=== PATIENT | female | born 1930 | race African-American/Black ===

== ENCOUNTER 2018-08-26 15:31 | Inpatient (IN) | payer MEDICARE, BC ==
[~2018-08-26] VITALS: Ht 157.5 cm; Wt 59.0 kg
[2018-08-26] MEDS ORDERED: FUROSEMIDE 40MG/4ML VIAL IVP ONE (16:30)
[2018-08-26 17:02] LABS: CHLORIDE 108 mEq/L (98-107); INR 1.1; PROTHROMBIN TIME 11.8 sec (9.6-11.0)
[2018-08-26 17:03] LABS: HEMATOCRIT. 34.2 % (36.0-48.0); HEMOGLOBIN. 11.3 g/dL (12.0-16.0); MEAN CORPUSCULAR HEMOGLOBIN 28.2 pg (28.0-32.0); MEAN CORPUSCULAR VOLUME 85.1 fL (81.0-99.0); MEAN PLATELET VOLUME 8.2 fl (7.4-10.4); PLATELET 137 x1000/uL (130-400); RED BLOOD CELL COUNT 4.02 mill/uL (4.2-5.4)
[2018-08-26] MEDS ORDERED: ASPIRIN 81MG TABLET PO ONE (17:30)
[2018-08-26 17:58] LABS: PLATELET ESTIMATE NORMAL
[2018-08-26 22:42] VITALS: BP 180/106
[2018-08-26 22:43] VITALS: BP 180/106
[2018-08-26] MEDS ORDERED: METH2.5T PO (23:29)
[2018-08-26] MEDS ORDERED: METO-396 PO (23:29)
[2018-08-26] MEDS ORDERED: FURO-151 PO (23:29)
[2018-08-26] MEDS ORDERED: NITR-87 PO (23:29)
[2018-08-26] MEDS ORDERED: DICL100G16 TP (23:29)
[2018-08-26] MEDS ORDERED: LOSA100T3 PO (23:29)
[2018-08-26] MEDS ORDERED: ASPI-1159 PO (23:29)
[2018-08-26] MEDS ORDERED: LIP40 PO (23:29)
[2018-08-27] MEDS: METOPROLOL TARTRATE 25MG TABLET PO SCH ×3 (00:39→21:04)
[2018-08-27] MEDS: ACETAMINOPHEN 325MG TABLET PO PRN ×2 (00:51→19:34)
[2018-08-27 03:57] VITALS: BP 141/79
[2018-08-27 05:57] LABS: HEMOGLOBIN. 10.4 g/dL (12.0-16.0); MEAN CORPUSCULAR HEMOGLOBIN 28.7 pg (28.0-32.0); MEAN CORPUSCULAR VOLUME 85.3 fL (81.0-99.0); MEAN PLATELET VOLUME 8.7 fl (7.4-10.4); PLATELET 134 x1000/uL (130-400); RED BLOOD CELL COUNT 3.63 mill/uL (4.2-5.4)
[2018-08-27 06:08] LABS: CLARITY URINE CLEAR (CLEAR); COLOR URINE YELLOW (YELLOW); KETONES URINE NEGATIVE (NEGATIVE); LEUKOCYTE ESTERASE URINE 1+ (NEGATIVE); NITRITE URINE NEGATIVE (NEGATIVE); OCCULT BLOOD URINE NEGATIVE (NEGATIVE); PROTEIN URINE NEGATIVE (NEGATIVE)
[2018-08-27 06:12] LABS: CHLORIDE 109 mEq/L (98-107)
[2018-08-27 06:19] LABS: LDL CHOLESTEROL 67 mg/dL (5-100)
[2018-08-27 06:29] LABS: CREATINE KINASE 43 IU/L (26-192); HDL CHOLESTEROL 48 mg/dL (40-59)
[2018-08-27 08:00] VITALS: BP 124/79
[2018-08-27] MEDS: ASPIRIN 81MG EC TABLET PO SCH (08:44)
[2018-08-27] MEDS: POTASSIUM CHLORIDE 10MEQ TABLET SR PO SCH (08:44)
[2018-08-27] MEDS: ENOXAPARIN 30MG/0.3ML SYR SUBCUT SCH (08:45)
[2018-08-27] MEDS: FUROSEMIDE 40MG/4ML VIAL IVP SCH (08:45)
[2018-08-27] MEDS ORDERED: AMLODIPINE 5MG TABLET PO SCH (09:00)
[2018-08-27] MEDS ORDERED: [UNRECOGNIZED DRUG - OTHER] PO SCH (09:00)
[2018-08-27] MEDS ORDERED: FUROSEMIDE 40MG/4ML VIAL IVP SCH (09:00)
[2018-08-27] MEDS ORDERED: NITROFURANTOIN PO SCH (09:00)
[2018-08-27] MEDS ORDERED: LOSARTAN POTASSIUM 100 MG TABLET PO SCH (09:00)
[2018-08-27] MEDS: IPRATROPIUM/ALBUTEROL 0.5-3(2.5)MG/3ML NEB HHN SCH ×4 (09:23→21:00)
[2018-08-27] MEDS: POTASSIUM CHLORIDE 20MEQ TABLET SR PO SCH (12:56)
[2018-08-27] MEDS: AMLODIPINE 5MG TABLET PO SCH (12:56)
[2018-08-27 13:12] LABS: PLATELET ESTIMATE NORMAL
[2018-08-27 16:26] LABS: CREATINE KINASE MB FRACTION 1.1 ng/mL (0.5-3.6)
[2018-08-27 16:36] LABS: FOLIC ACID (FOLATE) SERUM >20 ng/mL ng/mL (>5.38)
[2018-08-27 16:47] LABS: VITAMIN B12 SERUM 713 pg/mL (211-911)
[2018-08-27 20:00] VITALS: BP 135/76
[2018-08-27] MEDS: ATORVASTATIN CALCIUM 40MG TABLET PO SCH (21:03)
[2018-08-27 23:07] LABS: CREATINE KINASE 31 IU/L (26-192)
[2018-08-27 23:08] LABS: CREATINE KINASE MB FRACTION < 1.0 ng/mL (0.5-3.6)
[2018-08-28] VITALS: BP 133/74
[2018-08-28 04:00] VITALS: BP 147/72
[2018-08-28 06:11] LABS: BASOPHILS % 0.9 % (0.0-2.0); HEMOGLOBIN. 10.8 g/dL (12.0-16.0); LYMPHOCYTES % 13.8 % (20.0-50.0); MEAN CORPUSCULAR HEMOGLOBIN 28.6 pg (28.0-32.0); MEAN CORPUSCULAR VOLUME 84.7 fL (81.0-99.0); MEAN PLATELET VOLUME 8.8 fl (7.4-10.4); MONOCYTES % 9.5 % (2.0-8.0); NEUTROPHILS % 71.8 % (40.0-76.0); PLATELET 145 x1000/uL (130-400); RED BLOOD CELL COUNT 3.78 mill/uL (4.2-5.4); RED CELL DISTRIBUTION WIDTH 15.8 % (11.6-14.6)
[2018-08-28 08:00] VITALS: BP 158/90
[2018-08-28] MEDS: ENOXAPARIN 30MG/0.3ML SYR SUBCUT SCH (08:58)
[2018-08-28] MEDS: FUROSEMIDE 40MG/4ML VIAL IVP SCH (08:58)
[2018-08-28] MEDS: METOPROLOL TARTRATE 25MG TABLET PO SCH ×2 (08:59→21:30)
[2018-08-28] MEDS: LOSARTAN POTASSIUM 50 MG TABLET PO SCH (08:59)
[2018-08-28] MEDS: POTASSIUM CHLORIDE 10MEQ TABLET SR PO SCH (08:59)
[2018-08-28] MEDS: POTASSIUM CHLORIDE 20MEQ TABLET SR PO SCH (08:59)
[2018-08-28] MEDS: AMLODIPINE 5MG TABLET PO SCH (09:00)
[2018-08-28] MEDS: ASPIRIN 81MG EC TABLET PO SCH (09:00)
[2018-08-28] MEDS: IPRATROPIUM/ALBUTEROL 0.5-3(2.5)MG/3ML NEB HHN SCH ×4 (10:22→21:15)
[2018-08-28 12:00] VITALS: BP 145/81
[2018-08-28] MEDS: DOCUSATE SODIUM 100MG CAPSULE PO SCH ×2 (12:39→17:21)
[2018-08-28 16:00] VITALS: BP 166/92
[2018-08-28 20:00] VITALS: BP 141/74
[2018-08-28] MEDS: ATORVASTATIN CALCIUM 40MG TABLET PO SCH (21:29)
[2018-08-28] MEDS: ACETAMINOPHEN 325MG TABLET PO PRN (21:31)
[2018-08-29] VITALS: BP 131/69
[2018-08-29 04:00] VITALS: BP 154/82
[2018-08-29 07:08] LABS: BASOPHILS % 0.7 % (0.0-2.0); HEMATOCRIT. 34.3 % (36.0-48.0); HEMOGLOBIN. 11.3 g/dL (12.0-16.0); MEAN CORPUSCULAR HEMOGLOBIN 27.9 pg (28.0-32.0); MEAN CORPUSCULAR VOLUME 84.7 fL (81.0-99.0); MEAN PLATELET VOLUME 8.7 fl (7.4-10.4); MONOCYTES % 10.9 % (2.0-8.0); NEUTROPHILS % 67.4 % (40.0-76.0); PLATELET 167 x1000/uL (130-400); RED BLOOD CELL COUNT 4.05 mill/uL (4.2-5.4); RED CELL DISTRIBUTION WIDTH 15.9 % (11.6-14.6)
[2018-08-29 08:00] VITALS: BP 158/78
[2018-08-29] MEDS: IPRATROPIUM/ALBUTEROL 0.5-3(2.5)MG/3ML NEB HHN SCH (08:05)
[2018-08-29] MEDS ORDERED: CEPHALEXIN 250MG CAPSULE PO SCH (09:00)
[2018-08-29] MEDS: LOSARTAN POTASSIUM 50 MG TABLET PO SCH (09:51)
[2018-08-29] MEDS: METOPROLOL TARTRATE 25MG TABLET PO SCH (09:51)
[2018-08-29] MEDS: AMLODIPINE 5MG TABLET PO SCH (09:52)
[2018-08-29] MEDS: ENOXAPARIN 30MG/0.3ML SYR SUBCUT SCH (09:54)
[2018-08-29] MEDS: DOCUSATE SODIUM 100MG CAPSULE PO SCH (09:54)
[2018-08-29] MEDS: POTASSIUM CHLORIDE 10MEQ TABLET SR PO SCH (09:54)
[2018-08-29] MEDS: ASPIRIN 81MG EC TABLET PO SCH (09:54)
[2018-08-29 11:41] VITALS: BP 158/78
[2018-08-29 12:10] VITALS: BP 134/78
[2018-09-01] MEDS ORDERED: METHOTREXATE SODIUM 2 . 5MG TABLET PO SCH (09:00)
== END 2018-08-29 14:25 | disposition home health service (06) | DRG 682 ==
LOC: ER 15:55 → 6WST 17:42 → EDBEDREQTM 17:46 → EDBEDREQ 17:46 → ENRESERV 19:54
PROVIDERS: ADMIT Internal Medicine Geriatric Medicine; ATTEND Internal Medicine Geriatric Medicine
DX: N17.9 Acute kidney failure, unspecified (principal); I50.43 Acute on chronic combined systolic (congestive) and diastolic (congestive) heart failure; I13.0 Hypertensive heart and chronic kidney disease with heart failure and stage 1 through stage 4 chronic kidney disease, or unspecified chronic kidney disease; E46 Unspecified protein-calorie malnutrition; N39.0 Urinary tract infection, site not specified; I42.9 Cardiomyopathy, unspecified; I35.0 Nonrheumatic aortic (valve) stenosis; D63.8 Anemia in other chronic diseases classified elsewhere; B96.20 Unspecified Escherichia coli [E. coli] as the cause of diseases classified elsewhere; E03.9 Hypothyroidism, unspecified; F02.80 Dementia in other diseases classified elsewhere, unspecified severity, without behavioral disturbance, psychotic disturbance, mood disturbance, and anxiety; I27.29 Other secondary pulmonary hypertension; M19.90 Unspecified osteoarthritis, unspecified site; I27.20 Pulmonary hypertension, unspecified; J84.10 Pulmonary fibrosis, unspecified; G30.9 Alzheimer's disease, unspecified; I27.21 Secondary pulmonary arterial hypertension; M06.9 Rheumatoid arthritis, unspecified; N18.9 Chronic kidney disease, unspecified; N32.81 Overactive bladder; Z16.29 Resistance to other single specified antibiotic; Z79.82 Long term (current) use of aspirin; Z79.899 Other long term (current) drug therapy; Z82.49 Family history of ischemic heart disease and other diseases of the circulatory system; Z87.891 Personal history of nicotine dependence; Z88.0 Allergy status to penicillin; Z68.23 Body mass index [BMI] 23.0-23.9, adult
CPT/HCPCS: 36415; 71045; 76770; 80048; 80061; 82550; 82553; 82607; 82746; 83735; 83880; 84100; 84439; 84443; 84484; 87077; 87186; 93005; 93306; 93970; 94640; 96374; 96375; 97162; 99285; J1650; J1940; J7620